=== PATIENT | female | born 1995 | race Caucasian/White ===

== ENCOUNTER 2018-04-21 07:24 | Inpatient (IN) ==
[2018-04-21] MEDS ORDERED: HYDROmorphone 2 MG/1 ML VIAL ONE ×3 (07:30→14:02)
[2018-04-21] MEDS ORDERED: ONDANSETRON 4 MG/2 ML VIAL ONE ×3 (07:30→13:50)
[2018-04-21] MEDS ORDERED: DIPH/TET/ACEL PERT BOOSTER VACCINE 0.5 ML VIAL IM ONE (07:37)
[2018-04-21] MEDS ORDERED: ceFAZolin 1,000 MG VIAL ONE (07:37)
[2018-04-21] MEDS ORDERED: ONDANSETRON 4 MG/2 ML VIAL IV STA (07:42)
[2018-04-21] MEDS ORDERED: HYDROmorphone 2 MG/1 ML VIAL IV STA (07:42)
[2018-04-21] MEDS ORDERED: ceFAZolin 2,000 MG in SODIUM CHLORIDE 0.9% 100 ML IV STA (07:42)
[2018-04-21 07:48] LABS: Basophils % 0.2 % (0.0-0.8); Eosinophils # 0.3 10*3/uL (0.0-0.87); Eosinophils % 1.3 % (0.00-10.9); Hematocrit 32.2 VOL% (35.7-47.0); Hemoglobin 10.6 GM/DL (12.0-16.0); Immature Granulocytes Absolute 0.21 #; Lymphocytes # 1.9 10*3/uL (1.4-4.0); Lymphocytes % 8.7 % (21.3-54.2); Mean Corpuscular HGB Conc 32.9 GM/DL (32-36); Mean Corpuscular Hemoglobin 30 PG (27-34); Mean Corpuscular Volume 90.4 FL (87-102); Mean Platelet Volume 10.4 FL (9.6-12.0); Monocytes # 0.8 10*3/uL (0.11-0.8); Monocytes % 3.6 % (1.7-12.7); Neutrophils # 18.7 10*3/uL (1.4-7.4); Neutrophils % 85.2 % (38.7-73.9); Platelet Count 298 T/CUMM (130-400); Red Blood Count 3.56 MC/CUMM (3.8-5.5); Red Cell Distribution Width 12.3 % (9.3-17.3); White Blood Count 21.9 T/CUMM (4-12)
[2018-04-21 07:54] LABS: PT Patient Result 10.9 SECS; Partial Thromboplastin Time 24.2 SECS (0-40)
[2018-04-21 08:07] LABS: Band Neutrophils 2 % (0-10); Eosinophils 5 % (0-10); Hypochromasia 1+; Lymphocytes 9 % (20-55); Platelet Estimate Adequate; Segmented Neutrophils 80 % (50-85); Total Cells Counted 100
[2018-04-21 08:08] LABS: Microcytosis Slight
[2018-04-21 08:10] LABS: Alanine Aminotransferase 15 U/L (13-56); Albumin 3.2 G/DL (3.4-5.0); Alkaline Phosphatase 57 U/L (45-117); Amylase 50 U/L (25-115); Aspartate Amino Transferase 20 U/L (0-37); Bilirubin,Total < 0.39 MG/DL (0.2-1.0); Blood Urea Nitrogen 8 MG/DL (7-18); Calcium 7.2 MG/DL (8.5-10.1); Glucose 139 MG/DL (74-106); Osmolality,Calculated 278.4 MOS/KG (273-304); Potassium 3.8 MMOL/L (3.5-5.1); Sodium 140 MMOL/L (136-145); Total Protein 6.1 G/DL (6.4-8.3)
[2018-04-21] MEDS ORDERED: GENTAMICIN INJ 150 MG in SODIUM CHLORIDE 0.9% 100 ML IV STA (08:14)
[2018-04-21] MEDS ORDERED: HYDROmorphone 2 MG/1 ML VIAL IV ONE ×2 (08:25→09:20)
[2018-04-21 09:08] LABS: Apearance,Urine CLEAR (Clear); Bilirubin,Urine Negative (Negative); Blood, Urine Negative (Negative); Glucose,Urine (UA) Negative (Negative); Ketones,Urine Negative (Negative); Mucus,Urine Occasional /LPF (Occasional); Nitrite,Urine Negative (Negative); Protein,Urine Negative; RBC,Urine 1 /HPF (0-4); Squamous Epithelial Cell,Urine Occasional /HPF (0-10); Urine Color Yellow (Yellow); Urine Specific Gravity 1.031 (1.001-1.035); Urine Urobilinogen < 2.0 EU/DL (0.2-1.0); WBC,Urine <1 /HPF (0-6)
[2018-04-21] MEDS: LACTATED RINGERS 1,000 ML IV SCH ×3 (09:21→22:51)
[2018-04-21] MEDS ORDERED: TOBRAMYCIN 1.2 GM VIAL TOP ONE (09:23)
[2018-04-21 09:25] LABS: Barbiturates Screen,Urine Negative (Negative); Benzodiazepines Screen,Urine Negative (Negative); Cannabinoid Screen,Urine Positive (Negative); Opiate Screen,Urine Positive (Negative); Phencyclidine Screen,Urine Negative (Negative)
[2018-04-21] MEDS ORDERED: GENTAMICIN 80 MG/2 ML VIAL ONE (09:35)
[2018-04-21] MEDS ORDERED: PROPOFOL 200 MG/20 ML VIAL IV ONE (13:15)
[2018-04-21] MEDS ORDERED: fentaNYL 100 MCG/2 ML VIAL ONE ×2 (13:16)
[2018-04-21] MEDS ORDERED: MIDAZOLAM 2 MG/2 ML VIAL ONE (13:16)
[2018-04-21] MEDS ORDERED: DEXAMETHASONE 10 MG/1 ML VIAL ONE (13:16)
[2018-04-21] MEDS ORDERED: ACETAMINOPHEN 1,000 MG/100 ML VIAL IV ONE (13:16)
[2018-04-21] MEDS ORDERED: SEVOFLURANE 1 UNIT/15 MINUTE INH ONE (13:17)
[2018-04-21 13:30] LABS: Basophils % 0.1 % (0.0-0.8); Hematocrit 34.8 VOL% (35.7-47.0); Immature Granulocytes % 0.5 %; Immature Granulocytes Absolute 0.11 #; Lymphocytes # 1.3 10*3/uL (1.4-4.0); Lymphocytes % 5.9 % (21.3-54.2); Mean Corpuscular HGB Conc 31.6 GM/DL (32-36); Mean Corpuscular Hemoglobin 29 PG (27-34); Mean Corpuscular Volume 92.1 FL (87-102); Mean Platelet Volume 10.5 FL (9.6-12.0); Monocytes # 0.7 10*3/uL (0.11-0.8); Monocytes % 3.2 % (1.7-12.7); Neutrophils # 18.9 10*3/uL (1.4-7.4); Neutrophils % 90.3 % (38.7-73.9); Platelet Count 455 T/CUMM (130-400); Red Blood Count 3.78 MC/CUMM (3.8-5.5); Red Cell Distribution Width 12.5 % (9.3-17.3)
[2018-04-21] MEDS ORDERED: ROPIVACAINE 0.5% 30 ML VIAL ONE (13:39)
[2018-04-21] MEDS ORDERED: ONDANSETRON 4 MG/2 ML VIAL IV PRN (13:59)
[2018-04-21] MEDS: HYDROmorphone 2 MG/1 ML VIAL IV PRN ×4 (14:05→14:41)
[2018-04-21 15:21] LABS: Band Neutrophils 2 % (0-10); Lymphocytes 10 % (20-55); Platelet Estimate Increased; Polychromasia Slight; Segmented Neutrophils 88 % (50-85); Total Cells Counted 100
[2018-04-21 15:31] LABS: Basophils % 0.2 % (0.0-0.8); Hemoglobin 11.8 GM/DL (12.0-16.0); Immature Granulocytes % 0.7 %; Immature Granulocytes Absolute 0.15 #; Lymphocytes # 1.5 10*3/uL (1.4-4.0); Lymphocytes % 6.8 % (21.3-54.2); Mean Corpuscular HGB Conc 31.9 GM/DL (32-36); Mean Corpuscular Hemoglobin 30 PG (27-34); Mean Corpuscular Volume 92.5 FL (87-102); Mean Platelet Volume 10.4 FL (9.6-12.0); Monocytes # 0.9 10*3/uL (0.11-0.8); Neutrophils # 19.9 10*3/uL (1.4-7.4); Neutrophils % 88.3 % (38.7-73.9); Platelet Count 506 T/CUMM (130-400); Red Cell Distribution Width 12.6 % (9.3-17.3); White Blood Count 22.5 T/CUMM (4-12)
[2018-04-21 15:58] LABS: Calcium 7.3 MG/DL (8.5-10.1); Osmolality,Calculated 276.8 MOS/KG (273-304); Potassium 4.6 MMOL/L (3.5-5.1)
[2018-04-21 16:02] LABS: Band Neutrophils 2 % (0-10); Lymphocytes 6 % (20-55); Macrocytosis Slight; Platelet Estimate Increased; Segmented Neutrophils 89 % (50-85); Total Cells Counted 100
[2018-04-21] MEDS: ceFAZolin 2,000 MG in PREMIX 1 EACH IV SCH ×2 (16:30→23:47)
[2018-04-21] MEDS: MORPHINE 4 MG/1 ML VIAL IV PRN ×3 (16:32→23:44)
[2018-04-21] MEDS: ONDANSETRON 4 MG/2 ML VIAL IV PRN (16:37)
[2018-04-21] MEDS: GENTAMICIN INJ 320 MG in SODIUM CHLORIDE 0.9% 100 ML IV SCH (21:31)
[2018-04-22] MEDS: MORPHINE 4 MG/1 ML VIAL IV PRN ×5 (04:28→18:18)
[2018-04-22] MEDS: LACTATED RINGERS 1,000 ML IV SCH ×2 (05:43→16:43)
[2018-04-22 06:01] LABS: Basophils % 0.2 % (0.0-0.8); Hematocrit 25.2 VOL% (35.7-47.0); Hemoglobin 8.2 GM/DL (12.0-16.0); Immature Granulocytes % 0.5 %; Immature Granulocytes Absolute 0.06 #; Lymphocytes # 1.9 10*3/uL (1.4-4.0); Lymphocytes % 14.3 % (21.3-54.2); Mean Corpuscular HGB Conc 32.5 GM/DL (32-36); Mean Corpuscular Hemoglobin 29 PG (27-34); Mean Platelet Volume 10.5 FL (9.6-12.0); Monocytes # 1.4 10*3/uL (0.11-0.8); Monocytes % 10.9 % (1.7-12.7); Neutrophils # 9.6 10*3/uL (1.4-7.4); Neutrophils % 74.1 % (38.7-73.9); Platelet Count 274 T/CUMM (130-400); Red Blood Count 2.83 MC/CUMM (3.8-5.5); Red Cell Distribution Width 12.7 % (9.3-17.3); White Blood Count 12.9 T/CUMM (4-12)
[2018-04-22 06:17] LABS: Calcium 7.4 MG/DL (8.5-10.1); Potassium 4.2 MMOL/L (3.5-5.1)
[2018-04-22 06:35] LABS: Hypochromasia 1+; Microcytosis 1+
[2018-04-22 06:36] LABS: Platelet Estimate Normal
[2018-04-22] MEDS: PANTOPRAZOLE 40 MG TABLET PO SCH (08:41)
[2018-04-22] MEDS: ceFAZolin 2,000 MG in PREMIX 1 EACH IV SCH (08:41)
[2018-04-22] MEDS: CITALOPRAM 20 MG TABLET PO SCH (08:41)
[2018-04-22] MEDS: ONDANSETRON 4 MG/2 ML VIAL IV PRN ×2 (09:25→18:17)
[2018-04-22] MEDS ORDERED: ALPRAZolam 0.5 MG TABLET PO PRN (09:38)
[2018-04-22] MEDS: buPROPion 75 MG TABLET PO SCH (11:40)
[2018-04-22] MEDS: ACETAMINOPHEN 325 MG TABLET PO PRN (18:16)
[2018-04-22] MEDS: GENTAMICIN INJ 320 MG in SODIUM CHLORIDE 0.9% 100 ML IV SCH (20:41)
[2018-04-23] MEDS: LACTATED RINGERS 1,000 ML IV SCH (06:15)
[2018-04-23] MEDS ORDERED: ROPIVACAINE 0.5% 30 ML VIAL ONE (06:38)
[2018-04-23 07:07] LABS: Basophils % 0.3 % (0.0-0.8); Eosinophils # 0.1 10*3/uL (0.0-0.87); Eosinophils % 1.1 % (0.00-10.9); Hematocrit 20.3 VOL% (35.7-47.0); Hemoglobin 6.7 GM/DL (12.0-16.0); Immature Granulocytes % 0.5 %; Immature Granulocytes Absolute 0.05 #; Lymphocytes # 1.1 10*3/uL (1.4-4.0); Lymphocytes % 11.8 % (21.3-54.2); Mean Corpuscular Hemoglobin 30 PG (27-34); Mean Corpuscular Volume 90.2 FL (87-102); Mean Platelet Volume 10.9 FL (9.6-12.0); Monocytes # 0.9 10*3/uL (0.11-0.8); Monocytes % 9.9 % (1.7-12.7); Neutrophils # 7.3 10*3/uL (1.4-7.4); Neutrophils % 76.4 % (38.7-73.9); Platelet Count 200 T/CUMM (130-400); Red Blood Count 2.25 MC/CUMM (3.8-5.5); Red Cell Distribution Width 12.6 % (9.3-17.3); White Blood Count 9.5 T/CUMM (4-12)
[2018-04-23] MEDS ORDERED: SODIUM CHLORIDE 0.9% 1,000 ML IV PRN (07:16)
[2018-04-23 07:35] LABS: Band Neutrophils 3 % (0-10); Eosinophils 1 % (0-10); Hypochromasia 1+; Lymphocytes 10 % (20-55); Microcytosis Slight; Platelet Estimate Adequate; Segmented Neutrophils 76 % (50-85); Total Cells Counted 100
[2018-04-23 07:41] LABS: Osmolality,Calculated 271.8 MOS/KG (273-304); Potassium 3.9 MMOL/L (3.5-5.1)
[2018-04-23] MEDS ORDERED: SEVOFLURANE 1 UNIT/15 MINUTE INH ONE (09:14)
[2018-04-23] MEDS ORDERED: PROPOFOL 200 MG/20 ML VIAL IV ONE (09:14)
[2018-04-23] MEDS ORDERED: SODIUM CHLORIDE 0.9% 1,000 ML IV ONE (09:15)
[2018-04-23] MEDS ORDERED: MIDAZOLAM 2 MG/2 ML VIAL ONE (09:15)
[2018-04-23] MEDS ORDERED: fentaNYL 100 MCG/2 ML VIAL ONE (09:15)
[2018-04-23] MEDS ORDERED: ONDANSETRON 4 MG/2 ML VIAL ONE ×2 (09:15→09:22)
[2018-04-23] MEDS ORDERED: ONDANSETRON 4 MG/2 ML VIAL IV PRN (09:26)
[2018-04-23] MEDS ORDERED: HYDROmorphone 2 MG/1 ML VIAL IV PRN (09:39)
[2018-04-23] MEDS: ceFAZolin 2,000 MG in PREMIX 1 EACH IV SCH ×2 (10:49→18:08)
[2018-04-23] MEDS: CITALOPRAM 20 MG TABLET PO SCH (12:00)
[2018-04-23] MEDS: PANTOPRAZOLE 40 MG TABLET PO SCH (12:01)
[2018-04-23] MEDS: buPROPion 75 MG TABLET PO SCH (12:01)
[2018-04-23] MEDS: MORPHINE 4 MG/1 ML VIAL IV PRN ×3 (13:30→23:44)
[2018-04-23] MEDS: GENTAMICIN INJ 320 MG in SODIUM CHLORIDE 0.9% 100 ML IV SCH (20:23)
[2018-04-24] MEDS: ceFAZolin 2,000 MG in PREMIX 1 EACH IV SCH ×3 (02:40→19:34)
[2018-04-24] MEDS: LACTATED RINGERS 1,000 ML IV SCH (04:53)
[2018-04-24] MEDS: MORPHINE 4 MG/1 ML VIAL IV PRN (06:16)
[2018-04-24 06:23] LABS: Basophils % 0.3 % (0.0-0.8); Eosinophils # 0.2 10*3/uL (0.0-0.87); Eosinophils % 1.4 % (0.00-10.9); Hematocrit 24.6 VOL% (35.7-47.0); Immature Granulocytes % 0.5 %; Immature Granulocytes Absolute 0.06 #; Lymphocytes # 1.2 10*3/uL (1.4-4.0); Lymphocytes % 10.7 % (21.3-54.2); Mean Corpuscular HGB Conc 32.5 GM/DL (32-36); Mean Corpuscular Hemoglobin 29 PG (27-34); Mean Corpuscular Volume 89.5 FL (87-102); Mean Platelet Volume 10.9 FL (9.6-12.0); Monocytes # 0.8 10*3/uL (0.11-0.8); Monocytes % 6.9 % (1.7-12.7); Neutrophils # 9.1 10*3/uL (1.4-7.4); Neutrophils % 80.2 % (38.7-73.9); Platelet Count 185 T/CUMM (130-400); Red Blood Count 2.75 MC/CUMM (3.8-5.5); Red Cell Distribution Width 13.5 % (9.3-17.3); White Blood Count 11.4 T/CUMM (4-12)
[2018-04-24 06:31] LABS: Calcium 8.3 MG/DL (8.5-10.1); Osmolality,Calculated 266.1 MOS/KG (273-304); Potassium 3.8 MMOL/L (3.5-5.1)
[2018-04-24] MEDS: buPROPion 75 MG TABLET PO SCH (08:48)
[2018-04-24] MEDS: PANTOPRAZOLE 40 MG TABLET PO SCH (08:48)
[2018-04-24] MEDS: CITALOPRAM 20 MG TABLET PO SCH (08:48)
[2018-04-24] MEDS: diphenhydrAMINE CAP 25 MG CAPSULE PO PRN (10:53)
[2018-04-24] MEDS: HYDROmorphone 2 MG/1 ML VIAL IV PRN ×3 (11:37→22:37)
[2018-04-24] MEDS ORDERED: DIAZEPAM 5 MG TABLET PO ONE (16:24)
[2018-04-24] MEDS: GENTAMICIN INJ 320 MG in SODIUM CHLORIDE 0.9% 100 ML IV SCH (20:29)
[2018-04-25] MEDS: LACTATED RINGERS 1,000 ML IV SCH ×2 (00:13→10:30)
[2018-04-25] MEDS: diphenhydrAMINE CAP 25 MG CAPSULE PO PRN (00:13)
[2018-04-25] MEDS: HYDROmorphone 2 MG/1 ML VIAL IV PRN ×9 (03:58→21:38)
[2018-04-25] MEDS: ceFAZolin 2,000 MG in PREMIX 1 EACH IV SCH ×3 (04:00→21:35)
[2018-04-25] MEDS ORDERED: DIAZEPAM 5 MG TABLET PO ONE (06:00)
[2018-04-25] MEDS ORDERED: ROPIVACAINE 0.5% 30 ML VIAL ONE (06:36)
[2018-04-25] MEDS ORDERED: EPINEPHrine 1 MG/ML VIAL ONE (06:51)
[2018-04-25] MEDS ORDERED: BUPIVACAINE 0.25% /EPI 10 ML VIAL ONE (06:56)
[2018-04-25] MEDS ORDERED: BUPIVACAINE 0.5% 50 ML VIAL ONE ×2 (06:59→07:02)
[2018-04-25] MEDS ORDERED: BACITRACIN OINT 0.9 GM PACK TOP ONE (07:55)
[2018-04-25] MEDS ORDERED: ONDANSETRON 4 MG/2 ML VIAL IV PRN (09:41)
[2018-04-25] MEDS ORDERED: MEPERIDINE 25 MG/1 ML VIAL IV PRN (09:41)
[2018-04-25] MEDS ORDERED: NALOXONE 0.4 MG/ML VIAL IV PRN (09:41)
[2018-04-25] MEDS ORDERED: fentaNYL 100 MCG/2 ML VIAL ONE (09:44)
[2018-04-25] MEDS ORDERED: MIDAZOLAM 2 MG/2 ML VIAL ONE (09:44)
[2018-04-25] MEDS ORDERED: ONDANSETRON 4 MG/2 ML VIAL ONE ×2 (09:44→09:50)
[2018-04-25] MEDS ORDERED: PROPOFOL 200 MG/20 ML VIAL IV ONE (09:44)
[2018-04-25] MEDS ORDERED: SEVOFLURANE 1 UNIT/15 MINUTE INH ONE (09:44)
[2018-04-25] MEDS ORDERED: PHENYLEPHRINE 1 MG/10 ML SYRINGE IV ONE (09:44)
[2018-04-25] MEDS ORDERED: MEPERIDINE 25 MG/1 ML VIAL ONE (09:49)
[2018-04-25] MEDS ORDERED: HYDROmorphone 2 MG/1 ML VIAL ONE (09:49)
[2018-04-25] MEDS ORDERED: PROMETHAZINE 25 MG/1 ML VIAL ONE (09:50)
[2018-04-25 10:15] LABS: Basophils % 0.2 % (0.0-0.8); Eosinophils # 0.1 10*3/uL (0.0-0.87); Eosinophils % 1.7 % (0.00-10.9); Hematocrit 22.4 VOL% (35.7-47.0); Hemoglobin 7.3 GM/DL (12.0-16.0); Immature Granulocytes % 0.6 %; Immature Granulocytes Absolute 0.05 #; Lymphocytes # 1.5 10*3/uL (1.4-4.0); Lymphocytes % 18.5 % (21.3-54.2); Mean Corpuscular HGB Conc 32.6 GM/DL (32-36); Mean Corpuscular Hemoglobin 29 PG (27-34); Mean Corpuscular Volume 90.3 FL (87-102); Mean Platelet Volume 9.7 FL (9.6-12.0); Monocytes # 0.6 10*3/uL (0.11-0.8); Monocytes % 7.6 % (1.7-12.7); Neutrophils # 5.8 10*3/uL (1.4-7.4); Neutrophils % 71.4 % (38.7-73.9); Platelet Count 225 T/CUMM (130-400); Red Blood Count 2.48 MC/CUMM (3.8-5.5); Red Cell Distribution Width 13.2 % (9.3-17.3); White Blood Count 8.1 T/CUMM (4-12)
[2018-04-25 10:37] LABS: Osmolality,Calculated 274.5 MOS/KG (273-304); Potassium 3.6 MMOL/L (3.5-5.1)
[2018-04-25] MEDS: PANTOPRAZOLE 40 MG TABLET PO SCH (11:28)
[2018-04-25] MEDS: buPROPion 75 MG TABLET PO SCH ×2 (11:28→21:22)
[2018-04-25] MEDS: CITALOPRAM 20 MG TABLET PO SCH (11:28)
[2018-04-25] MEDS ORDERED: SODIUM CHLORIDE 0.9% 1,000 ML IV PRN (11:30)
[2018-04-25] MEDS: FONDAPARINUX 2.5 MG/0.5 ML SYRINGE SUBCUT SCH (15:14)
[2018-04-25] MEDS: GENTAMICIN INJ 320 MG in SODIUM CHLORIDE 0.9% 100 ML IV SCH (22:36)
[2018-04-26] MEDS: HYDROmorphone 2 MG/1 ML VIAL IV PRN ×6 (03:26→23:16)
[2018-04-26 05:09] LABS: Basophils % 0.2 % (0.0-0.8); Eosinophils # 0.3 10*3/uL (0.0-0.87); Eosinophils % 2.9 % (0.00-10.9); Hematocrit 27.2 VOL% (35.7-47.0); Lymphocytes # 1.7 10*3/uL (1.4-4.0); Lymphocytes % 16.3 % (21.3-54.2); Mean Corpuscular HGB Conc 33.1 GM/DL (32-36); Mean Corpuscular Hemoglobin 29 PG (27-34); Mean Corpuscular Volume 87.5 FL (87-102); Mean Platelet Volume 9.9 FL (9.6-12.0); Monocytes # 1.1 10*3/uL (0.11-0.8); Monocytes % 10.4 % (1.7-12.7); Neutrophils % 69.2 % (38.7-73.9); Platelet Count 258 T/CUMM (130-400); Red Blood Count 3.11 MC/CUMM (3.8-5.5); Red Cell Distribution Width 13.8 % (9.3-17.3); White Blood Count 10.1 T/CUMM (4-12)
[2018-04-26] MEDS: ceFAZolin 2,000 MG in PREMIX 1 EACH IV SCH ×3 (05:43→21:12)
[2018-04-26] MEDS: buPROPion 75 MG TABLET PO SCH ×2 (08:06→21:10)
[2018-04-26] MEDS: MULTIVITAMIN (PRENATAL) TABLET PO SCH (08:06)
[2018-04-26] MEDS: CITALOPRAM 20 MG TABLET PO SCH (08:06)
[2018-04-26] MEDS: PANTOPRAZOLE 40 MG TABLET PO SCH (08:06)
[2018-04-26] MEDS: FONDAPARINUX 2.5 MG/0.5 ML SYRINGE SUBCUT SCH (14:47)
[2018-04-26] MEDS: MAGNESIUM HYDROXIDE SUSP 30 ML UDCUP PO PRN (16:57)
[2018-04-26] MEDS: GENTAMICIN INJ 320 MG in SODIUM CHLORIDE 0.9% 100 ML IV SCH (22:00)
[2018-04-27] MEDS: HYDROmorphone 2 MG/1 ML VIAL IV PRN ×7 (01:14→19:54)
[2018-04-27] MEDS: ONDANSETRON 4 MG/2 ML VIAL IV PRN ×2 (04:09→22:31)
[2018-04-27] MEDS: ceFAZolin 2,000 MG in PREMIX 1 EACH IV SCH ×3 (05:23→21:48)
[2018-04-27] MEDS: CITALOPRAM 20 MG TABLET PO SCH (08:31)
[2018-04-27] MEDS: PANTOPRAZOLE 40 MG TABLET PO SCH (08:32)
[2018-04-27] MEDS: MULTIVITAMIN (PRENATAL) TABLET PO SCH (08:32)
[2018-04-27] MEDS: buPROPion 75 MG TABLET PO SCH ×2 (08:32→21:51)
[2018-04-27] MEDS: MAGNESIUM HYDROXIDE SUSP 30 ML UDCUP PO PRN ×2 (13:16→21:51)
[2018-04-27] MEDS: FONDAPARINUX 2.5 MG/0.5 ML SYRINGE SUBCUT SCH (16:19)
[2018-04-27] MEDS: GENTAMICIN INJ 320 MG in SODIUM CHLORIDE 0.9% 100 ML IV SCH (21:53)
[2018-04-28] MEDS: LACTATED RINGERS 1,000 ML IV SCH ×2 (00:55→18:46)
[2018-04-28] MEDS: HYDROmorphone 2 MG/1 ML VIAL IV PRN ×9 (01:28→20:48)
[2018-04-28] MEDS: ceFAZolin 2,000 MG in PREMIX 1 EACH IV SCH ×2 (04:43→17:25)
[2018-04-28] MEDS ORDERED: CLINDAMYCIN INJ 600 MG in PREMIX 1 EACH IV ONE (05:00)
[2018-04-28 09:17] LABS: Basophils % 0.2 % (0.0-0.8); Eosinophils # 0.1 10*3/uL (0.0-0.87); Eosinophils % 1.3 % (0.00-10.9); Hematocrit 32.4 VOL% (35.7-47.0); Hemoglobin 10.6 GM/DL (12.0-16.0); Immature Granulocytes % 1.2 %; Immature Granulocytes Absolute 0.12 #; Lymphocytes % 9.6 % (21.3-54.2); Mean Corpuscular HGB Conc 32.7 GM/DL (32-36); Mean Corpuscular Hemoglobin 29 PG (27-34); Mean Corpuscular Volume 88.5 FL (87-102); Mean Platelet Volume 9.3 FL (9.6-12.0); Monocytes % 9.1 % (1.7-12.7); Neutrophils # 8.2 10*3/uL (1.4-7.4); Neutrophils % 78.6 % (38.7-73.9); Platelet Count 404 T/CUMM (130-400); Red Blood Count 3.66 MC/CUMM (3.8-5.5); Red Cell Distribution Width 13.2 % (9.3-17.3); White Blood Count 10.4 T/CUMM (4-12)
[2018-04-28] MEDS ORDERED: BACITRACIN OINT 0.9 GM PACK TOP ONE (11:39)
[2018-04-28] MEDS ORDERED: TOBRAMYCIN 1.2 GM VIAL TOP ONE (12:58)
[2018-04-28] MEDS ORDERED: GENTAMICIN 80 MG/2 ML VIAL ONE (12:59)
[2018-04-28] MEDS ORDERED: VANCOMYCIN 1,000 MG VIAL ONE (13:04)
[2018-04-28] MEDS ORDERED: ACETAMINOPHEN 1,000 MG/100 ML VIAL IV ONE (14:55)
[2018-04-28] MEDS ORDERED: PROPOFOL 200 MG/20 ML VIAL IV ONE (14:55)
[2018-04-28] MEDS ORDERED: SEVOFLURANE 1 UNIT/15 MINUTE INH ONE (14:55)
[2018-04-28] MEDS ORDERED: fentaNYL 100 MCG/2 ML VIAL ONE (14:55)
[2018-04-28] MEDS ORDERED: DEXAMETHASONE 10 MG/1 ML VIAL ONE (14:55)
[2018-04-28] MEDS ORDERED: ONDANSETRON 4 MG/2 ML VIAL ONE ×2 (14:55→15:15)
[2018-04-28] MEDS ORDERED: LACTATED RINGERS 1,000 ML IV ONE (14:55)
[2018-04-28] MEDS ORDERED: MIDAZOLAM 2 MG/2 ML VIAL ONE (14:55)
[2018-04-28] MEDS ORDERED: HYDROmorphone 2 MG/1 ML VIAL ONE (15:15)
[2018-04-28] MEDS ORDERED: ONDANSETRON 4 MG/2 ML VIAL IV PRN (15:17)
[2018-04-28] MEDS: PANTOPRAZOLE 40 MG TABLET PO SCH (17:11)
[2018-04-28] MEDS: MULTIVITAMIN (PRENATAL) TABLET PO SCH (17:11)
[2018-04-28] MEDS: CITALOPRAM 20 MG TABLET PO SCH (17:11)
[2018-04-28] MEDS: buPROPion 75 MG TABLET PO SCH ×2 (17:20→20:48)
[2018-04-28] MEDS: FONDAPARINUX 2.5 MG/0.5 ML SYRINGE SUBCUT SCH (18:21)
[2018-04-28] MEDS: GENTAMICIN INJ 320 MG in SODIUM CHLORIDE 0.9% 100 ML IV SCH (22:43)
[2018-04-29] MEDS: HYDROmorphone 2 MG/1 ML VIAL IV PRN ×5 (00:12→19:50)
[2018-04-29] MEDS: ceFAZolin 2,000 MG in PREMIX 1 EACH IV SCH ×3 (00:15→17:31)
[2018-04-29 05:22] LABS: Calcium 8.7 MG/DL (8.5-10.1); Osmolality,Calculated 271.2 MOS/KG (273-304); Potassium 4.6 MMOL/L (3.5-5.1)
[2018-04-29] MEDS: LACTATED RINGERS 1,000 ML IV SCH ×2 (06:49→07:49)
[2018-04-29] MEDS ORDERED: BISACODYL 10 MG SUPP RECTAL ONE (07:48)
[2018-04-29] MEDS: CITALOPRAM 20 MG TABLET PO SCH (09:03)
[2018-04-29] MEDS: MULTIVITAMIN (PRENATAL) TABLET PO SCH (09:03)
[2018-04-29] MEDS: PANTOPRAZOLE 40 MG TABLET PO SCH (09:03)
[2018-04-29] MEDS: buPROPion 75 MG TABLET PO SCH ×2 (10:27→21:51)
[2018-04-29] MEDS: FONDAPARINUX 2.5 MG/0.5 ML SYRINGE SUBCUT SCH (14:50)
[2018-04-29] MEDS: GENTAMICIN INJ 320 MG in SODIUM CHLORIDE 0.9% 100 ML IV SCH (21:45)
[2018-04-30] MEDS: LACTATED RINGERS 1,000 ML IV SCH ×4 (00:34→22:00)
[2018-04-30] MEDS: HYDROmorphone 2 MG/1 ML VIAL IV PRN ×3 (00:34→13:10)
[2018-04-30] MEDS: ceFAZolin 2,000 MG in PREMIX 1 EACH IV SCH ×3 (00:34→16:45)
[2018-04-30] MEDS: buPROPion 75 MG TABLET PO SCH ×2 (09:08→21:44)
[2018-04-30] MEDS: PANTOPRAZOLE 40 MG TABLET PO SCH (09:09)
[2018-04-30] MEDS: MULTIVITAMIN (PRENATAL) TABLET PO SCH (09:09)
[2018-04-30] MEDS: CITALOPRAM 20 MG TABLET PO SCH (09:09)
[2018-04-30] MEDS: FONDAPARINUX 2.5 MG/0.5 ML SYRINGE SUBCUT SCH (16:44)
[2018-04-30] MEDS: GENTAMICIN INJ 320 MG in SODIUM CHLORIDE 0.9% 100 ML IV SCH (21:44)
[2018-05-01] MEDS: ceFAZolin 2,000 MG in PREMIX 1 EACH IV SCH ×3 (00:23→16:29)
[2018-05-01] MEDS: LACTATED RINGERS 1,000 ML IV SCH ×2 (07:10→22:22)
[2018-05-01] MEDS: buPROPion 75 MG TABLET PO SCH ×2 (08:08→20:37)
[2018-05-01] MEDS: CITALOPRAM 20 MG TABLET PO SCH (08:08)
[2018-05-01] MEDS: PANTOPRAZOLE 40 MG TABLET PO SCH (08:08)
[2018-05-01] MEDS: MULTIVITAMIN (PRENATAL) TABLET PO SCH (08:08)
[2018-05-01] MEDS: HYDROmorphone 2 MG/1 ML VIAL IV PRN ×3 (12:10→17:33)
[2018-05-01] MEDS: FONDAPARINUX 2.5 MG/0.5 ML SYRINGE SUBCUT SCH (15:05)
[2018-05-01] MEDS: GENTAMICIN INJ 320 MG in SODIUM CHLORIDE 0.9% 100 ML IV SCH (22:22)
[2018-05-02] MEDS: ceFAZolin 2,000 MG in PREMIX 1 EACH IV SCH ×3 (00:35→16:18)
[2018-05-02 05:13] LABS: Basophils % 0.2 % (0.0-0.8); Eosinophils # 0.2 10*3/uL (0.0-0.87); Eosinophils % 1.2 % (0.00-10.9); Hematocrit 28.9 VOL% (35.7-47.0); Hemoglobin 9.1 GM/DL (12.0-16.0); Immature Granulocytes % 1.7 %; Immature Granulocytes Absolute 0.23 #; Lymphocytes # 2.5 10*3/uL (1.4-4.0); Mean Corpuscular HGB Conc 31.5 GM/DL (32-36); Mean Corpuscular Hemoglobin 28 PG (27-34); Mean Corpuscular Volume 88.4 FL (87-102); Mean Platelet Volume 8.8 FL (9.6-12.0); Monocytes # 0.7 10*3/uL (0.11-0.8); Monocytes % 5.1 % (1.7-12.7); Neutrophils # 10.2 10*3/uL (1.4-7.4); Neutrophils % 73.8 % (38.7-73.9); Platelet Count 538 T/CUMM (130-400); Red Blood Count 3.27 MC/CUMM (3.8-5.5); White Blood Count 13.8 T/CUMM (4-12)
[2018-05-02 05:20] LABS: Calcium 8.9 MG/DL (8.5-10.1); Osmolality,Calculated 273.8 MOS/KG (273-304); Potassium 4.1 MMOL/L (3.5-5.1)
[2018-05-02] MEDS ORDERED: BUPIVACAINE 0.5% 50 ML VIAL ONE (07:30)
[2018-05-02] MEDS ORDERED: EPINEPHrine 1 MG/ML VIAL ONE (07:31)
[2018-05-02] MEDS ORDERED: FAMOTIDINE 20 MG/2 ML VIAL IV ONE (08:10)
[2018-05-02] MEDS ORDERED: MINERAL OIL (TOPICAL) 25 ML BOTTLE TOP ONE (08:21)
[2018-05-02] MEDS ORDERED: fentaNYL 100 MCG/2 ML VIAL ONE (09:31)
[2018-05-02] MEDS ORDERED: MIDAZOLAM 2 MG/2 ML VIAL ONE (09:31)
[2018-05-02] MEDS ORDERED: SEVOFLURANE 1 UNIT/15 MINUTE INH ONE (09:31)
[2018-05-02] MEDS ORDERED: PROPOFOL 200 MG/20 ML VIAL IV ONE (09:31)
[2018-05-02] MEDS ORDERED: ONDANSETRON 4 MG/2 ML VIAL ONE (09:32)
[2018-05-02] MEDS ORDERED: PHENYLEPHRINE 1 MG/10 ML SYRINGE IV ONE (09:32)
[2018-05-02] MEDS: HYDROmorphone 2 MG/1 ML VIAL IV PRN ×5 (10:29→21:57)
[2018-05-02] MEDS: buPROPion 75 MG TABLET PO SCH ×2 (12:38→21:04)
[2018-05-02] MEDS: MULTIVITAMIN (PRENATAL) TABLET PO SCH (12:38)
[2018-05-02] MEDS: PANTOPRAZOLE 40 MG TABLET PO SCH (12:38)
[2018-05-02] MEDS: CITALOPRAM 20 MG TABLET PO SCH (12:38)
[2018-05-02] MEDS: FONDAPARINUX 2.5 MG/0.5 ML SYRINGE SUBCUT SCH (15:36)
[2018-05-02] MEDS: GENTAMICIN INJ 320 MG in SODIUM CHLORIDE 0.9% 100 ML IV SCH (21:05)
[2018-05-02] MEDS: LACTATED RINGERS 1,000 ML IV SCH (21:56)
[2018-05-03] MEDS: HYDROmorphone 2 MG/1 ML VIAL IV PRN ×12 (00:03→22:11)
[2018-05-03] MEDS: ceFAZolin 2,000 MG in PREMIX 1 EACH IV SCH ×3 (01:57→16:01)
[2018-05-03] MEDS: buPROPion 75 MG TABLET PO SCH ×2 (09:38→20:01)
[2018-05-03] MEDS: CITALOPRAM 20 MG TABLET PO SCH (09:38)
[2018-05-03] MEDS: MULTIVITAMIN (PRENATAL) TABLET PO SCH (09:38)
[2018-05-03] MEDS: PANTOPRAZOLE 40 MG TABLET PO SCH (09:39)
[2018-05-03] MEDS: FONDAPARINUX 2.5 MG/0.5 ML SYRINGE SUBCUT SCH (15:04)
[2018-05-03] MEDS: GENTAMICIN INJ 320 MG in SODIUM CHLORIDE 0.9% 100 ML IV SCH (22:15)
[2018-05-03] MEDS: ACETAMINOPHEN 325 MG TABLET PO PRN (22:21)
[2018-05-04] MEDS: HYDROmorphone 2 MG/1 ML VIAL IV PRN ×13 (00:45→22:47)
[2018-05-04] MEDS: ceFAZolin 2,000 MG in PREMIX 1 EACH IV SCH ×3 (00:54→17:43)
[2018-05-04] MEDS: LACTATED RINGERS 1,000 ML IV SCH ×2 (00:55→12:13)
[2018-05-04] MEDS: buPROPion 75 MG TABLET PO SCH ×2 (09:00→21:10)
[2018-05-04] MEDS ORDERED: SEVOFLURANE 1 UNIT/15 MINUTE INH ONE (09:15)
[2018-05-04] MEDS ORDERED: fentaNYL 100 MCG/2 ML VIAL ONE (09:15)
[2018-05-04] MEDS ORDERED: PROPOFOL 200 MG/20 ML VIAL IV ONE (09:15)
[2018-05-04] MEDS ORDERED: MIDAZOLAM 2 MG/2 ML VIAL ONE (09:15)
[2018-05-04] MEDS ORDERED: ONDANSETRON 4 MG/2 ML VIAL ONE ×2 (09:16→09:25)
[2018-05-04] MEDS ORDERED: PHENYLEPHRINE 1 MG/10 ML SYRINGE IV ONE (09:16)
[2018-05-04] MEDS ORDERED: HYDROmorphone 2 MG/1 ML VIAL ONE (09:25)
[2018-05-04] MEDS ORDERED: MEPERIDINE 25 MG/1 ML VIAL ONE (09:25)
[2018-05-04] MEDS ORDERED: PROMETHAZINE 25 MG/1 ML VIAL ONE (09:25)
[2018-05-04] MEDS ORDERED: ONDANSETRON 4 MG/2 ML VIAL IV PRN (10:29)
[2018-05-04] MEDS ORDERED: MEPERIDINE 25 MG/1 ML VIAL IV PRN (10:29)
[2018-05-04] MEDS ORDERED: PROMETHAZINE INJ 25 MG in SODIUM CHLORIDE 0.9% 50 ML IV PRN (10:29)
[2018-05-04] MEDS: MULTIVITAMIN (PRENATAL) TABLET PO SCH (12:06)
[2018-05-04] MEDS: CITALOPRAM 20 MG TABLET PO SCH (12:06)
[2018-05-04] MEDS: PANTOPRAZOLE 40 MG TABLET PO SCH (12:06)
[2018-05-04] MEDS: MAGNESIUM HYDROXIDE SUSP 30 ML UDCUP PO PRN (12:12)
[2018-05-04] MEDS: FONDAPARINUX 2.5 MG/0.5 ML SYRINGE SUBCUT SCH (14:11)
[2018-05-04] MEDS: GENTAMICIN INJ 320 MG in SODIUM CHLORIDE 0.9% 100 ML IV SCH (21:12)
[2018-05-05] MEDS: HYDROmorphone 2 MG/1 ML VIAL IV PRN ×11 (01:12→22:08)
[2018-05-05] MEDS: ceFAZolin 2,000 MG in PREMIX 1 EACH IV SCH ×3 (01:17→17:05)
[2018-05-05 06:41] LABS: Basophils % 0.2 % (0.0-0.8); Eosinophils # 0.1 10*3/uL (0.0-0.87); Eosinophils % 1.2 % (0.00-10.9); Hematocrit 26.8 VOL% (35.7-47.0); Hemoglobin 8.3 GM/DL (12.0-16.0); Immature Granulocytes % 0.8 %; Immature Granulocytes Absolute 0.09 #; Lymphocytes # 2.1 10*3/uL (1.4-4.0); Lymphocytes % 17.6 % (21.3-54.2); Mean Corpuscular Hemoglobin 28 PG (27-34); Mean Corpuscular Volume 90.2 FL (87-102); Mean Platelet Volume 8.9 FL (9.6-12.0); Monocytes # 0.8 10*3/uL (0.11-0.8); Monocytes % 6.8 % (1.7-12.7); Neutrophils # 8.7 10*3/uL (1.4-7.4); Neutrophils % 73.4 % (38.7-73.9); Platelet Count 498 T/CUMM (130-400); Red Blood Count 2.97 MC/CUMM (3.8-5.5); Red Cell Distribution Width 12.9 % (9.3-17.3); White Blood Count 11.9 T/CUMM (4-12)
[2018-05-05 07:15] LABS: Calcium 8.6 MG/DL (8.5-10.1); Osmolality,Calculated 276.7 MOS/KG (273-304); Potassium 3.8 MMOL/L (3.5-5.1)
[2018-05-05 08:26] LABS: Carboxy-THC Interpretation Positive.; Carboxy-THC-by GC/MS >500.0 ng/mL
[2018-05-05] MEDS: PANTOPRAZOLE 40 MG TABLET PO SCH (08:36)
[2018-05-05] MEDS: MULTIVITAMIN (PRENATAL) TABLET PO SCH (08:36)
[2018-05-05] MEDS: buPROPion 75 MG TABLET PO SCH ×2 (08:36→20:03)
[2018-05-05] MEDS: CITALOPRAM 20 MG TABLET PO SCH (08:36)
[2018-05-05] MEDS: FONDAPARINUX 2.5 MG/0.5 ML SYRINGE SUBCUT SCH (15:29)
[2018-05-05 18:20] LABS: Codeine-by LC-MS/MS Negative ng/mL (Cutoff: 25); Dihydrocodeine-by LC-MS/MS Negative ng/mL (Cutoff: 25); Morphine-by LC-MS/MS Negative ng/mL (Cutoff: 25); Norhydrocodone-by LC-MS/MS Negative ng/mL (Cutoff: 25); Noroxycodone-by LC MS/MS Negative ng/mL (Cutoff: 25); Opiates Interpretation Positive.; Oxycodone-by LC-MS/MS Negative ng/mL (Cutoff: 25)
[2018-05-05] MEDS: GENTAMICIN INJ 320 MG in SODIUM CHLORIDE 0.9% 100 ML IV SCH (21:24)
[2018-05-05] MEDS: MAGNESIUM HYDROXIDE SUSP 30 ML UDCUP PO PRN (22:07)
[2018-05-06] MEDS: ceFAZolin 2,000 MG in PREMIX 1 EACH IV SCH ×3 (00:02→18:50)
[2018-05-06] MEDS: HYDROmorphone 2 MG/1 ML VIAL IV PRN ×13 (00:07→23:44)
[2018-05-06] MEDS: DEXTROSE 5% LACTATED RINGERS 1,000 ML IV SCH ×2 (01:49→10:35)
[2018-05-06] MEDS: CITALOPRAM 20 MG TABLET PO SCH (11:09)
[2018-05-06] MEDS: MULTIVITAMIN (PRENATAL) TABLET PO SCH (11:09)
[2018-05-06] MEDS: PANTOPRAZOLE 40 MG TABLET PO SCH (11:10)
[2018-05-06] MEDS: buPROPion 75 MG TABLET PO SCH ×2 (11:10→21:30)
[2018-05-06] MEDS ORDERED: BACITRACIN OINT 0.9 GM PACK TOP ONE (11:47)
[2018-05-06] MEDS ORDERED: FAMOTIDINE 20 MG/2 ML VIAL IV ONE (12:12)
[2018-05-06] MEDS ORDERED: TRANEXAMIC ACID 1,000 MG/10 ML VIAL ONE (14:05)
[2018-05-06] MEDS ORDERED: SEVOFLURANE 1 UNIT/15 MINUTE INH ONE (14:33)
[2018-05-06] MEDS ORDERED: PROPOFOL 200 MG/20 ML VIAL IV ONE (14:33)
[2018-05-06] MEDS ORDERED: fentaNYL 100 MCG/2 ML VIAL ONE (14:33)
[2018-05-06] MEDS ORDERED: MIDAZOLAM 2 MG/2 ML VIAL ONE ×2 (14:34)
[2018-05-06] MEDS ORDERED: PHENYLEPHRINE 1 MG/10 ML SYRINGE IV ONE (14:34)
[2018-05-06] MEDS ORDERED: ONDANSETRON 4 MG/2 ML VIAL ONE ×2 (14:34→15:03)
[2018-05-06] MEDS ORDERED: ONDANSETRON 4 MG/2 ML VIAL IV PRN (15:03)
[2018-05-06] MEDS ORDERED: HYDROmorphone 2 MG/1 ML VIAL ONE (15:03)
[2018-05-06] MEDS ORDERED: MEPERIDINE 25 MG/1 ML VIAL ONE ×2 (15:14→15:45)
[2018-05-06] MEDS: MEPERIDINE 25 MG/1 ML VIAL IV PRN ×2 (15:28→15:55)
[2018-05-06] MEDS: FONDAPARINUX 2.5 MG/0.5 ML SYRINGE SUBCUT SCH (17:26)
[2018-05-06] MEDS: KETOROLAC 30 MG/1 ML VIAL IV PRN (19:30)
[2018-05-06] MEDS: GENTAMICIN INJ 320 MG in SODIUM CHLORIDE 0.9% 100 ML IV SCH (22:48)
[2018-05-07] MEDS: HYDROmorphone 2 MG/1 ML VIAL IV PRN ×11 (01:46→23:22)
[2018-05-07] MEDS: ceFAZolin 2,000 MG in PREMIX 1 EACH IV SCH ×2 (01:55→08:34)
[2018-05-07] MEDS: DEXTROSE 5% LACTATED RINGERS 1,000 ML IV SCH ×4 (02:41→21:26)
[2018-05-07] MEDS: KETOROLAC 30 MG/1 ML VIAL IV PRN (05:13)
[2018-05-07 07:25] LABS: Basophils % 0.1 % (0.0-0.8); Eosinophils % 0.1 % (0.00-10.9); Hematocrit 24.5 VOL% (35.7-47.0); Hemoglobin 7.5 GM/DL (12.0-16.0); Immature Granulocytes % 0.9 %; Immature Granulocytes Absolute 0.11 #; Lymphocytes # 1.8 10*3/uL (1.4-4.0); Lymphocytes % 14.9 % (21.3-54.2); Mean Corpuscular HGB Conc 30.6 GM/DL (32-36); Mean Corpuscular Hemoglobin 27 PG (27-34); Mean Corpuscular Volume 88.8 FL (87-102); Mean Platelet Volume 8.9 FL (9.6-12.0); Monocytes # 0.9 10*3/uL (0.11-0.8); Monocytes % 7.8 % (1.7-12.7); Neutrophils # 9.1 10*3/uL (1.4-7.4); Neutrophils % 76.2 % (38.7-73.9); Platelet Count 546 T/CUMM (130-400); Red Blood Count 2.76 MC/CUMM (3.8-5.5); Red Cell Distribution Width 12.8 % (9.3-17.3)
[2018-05-07 07:50] LABS: Calcium 8.4 MG/DL (8.5-10.1); Osmolality,Calculated 273.8 MOS/KG (273-304); Potassium 4.1 MMOL/L (3.5-5.1)
[2018-05-07] MEDS: CITALOPRAM 20 MG TABLET PO SCH (08:33)
[2018-05-07] MEDS: MULTIVITAMIN (PRENATAL) TABLET PO SCH (08:34)
[2018-05-07] MEDS: buPROPion 75 MG TABLET PO SCH ×2 (08:34→20:15)
[2018-05-07] MEDS: PANTOPRAZOLE 40 MG TABLET PO SCH (08:34)
[2018-05-07] MEDS: FONDAPARINUX 2.5 MG/0.5 ML SYRINGE SUBCUT SCH (15:23)
[2018-05-07] MEDS: GABAPENTIN 100 MG CAPSULE PO SCH ×2 (16:13→20:15)
[2018-05-08] MEDS: HYDROmorphone 2 MG/1 ML VIAL IV PRN ×5 (01:27→13:24)
[2018-05-08] MEDS: DEXTROSE 5% LACTATED RINGERS 1,000 ML IV SCH ×2 (05:30→09:51)
[2018-05-08] MEDS: CITALOPRAM 20 MG TABLET PO SCH (08:47)
[2018-05-08] MEDS: MULTIVITAMIN (PRENATAL) TABLET PO SCH (08:47)
[2018-05-08] MEDS: PANTOPRAZOLE 40 MG TABLET PO SCH (08:47)
[2018-05-08] MEDS: GABAPENTIN 100 MG CAPSULE PO SCH (08:48)
[2018-05-08] MEDS: buPROPion 75 MG TABLET PO SCH ×2 (08:48→20:38)
[2018-05-08] MEDS ORDERED: CELECOXIB 200 MG CAPSULE PO ONE (10:04)
[2018-05-08] MEDS: GABAPENTIN 300 MG CAPSULE PO SCH ×2 (12:32→20:38)
[2018-05-08] MEDS ORDERED: GABAPENTIN 100 MG CAPSULE PO SCH (15:00)
[2018-05-08] MEDS: FONDAPARINUX 2.5 MG/0.5 ML SYRINGE SUBCUT SCH (15:46)
[2018-05-08] MEDS: CELECOXIB 200 MG CAPSULE PO SCH (20:38)
[2018-05-09] MEDS: CELECOXIB 200 MG CAPSULE PO SCH ×2 (08:57→20:43)
[2018-05-09] MEDS: GABAPENTIN 300 MG CAPSULE PO SCH ×2 (08:57→20:43)
[2018-05-09] MEDS: CITALOPRAM 20 MG TABLET PO SCH (08:57)
[2018-05-09] MEDS: PANTOPRAZOLE 40 MG TABLET PO SCH (08:57)
[2018-05-09] MEDS: buPROPion 75 MG TABLET PO SCH ×2 (08:57→20:43)
[2018-05-09] MEDS: MULTIVITAMIN (PRENATAL) TABLET PO SCH (08:57)
[2018-05-09] MEDS: FONDAPARINUX 2.5 MG/0.5 ML SYRINGE SUBCUT SCH (16:04)
[2018-05-09] MEDS: HYDROmorphone 2 MG/1 ML VIAL IV PRN (21:44)
[2018-05-10] MEDS: HYDROmorphone 2 MG/1 ML VIAL IV PRN ×9 (00:59→23:05)
[2018-05-10 06:39] LABS: Basophils % 0.5 % (0.0-0.8); Eosinophils # 0.2 10*3/uL (0.0-0.87); Eosinophils % 2.9 % (0.00-10.9); Hematocrit 27.3 VOL% (35.7-47.0); Hemoglobin 8.2 GM/DL (12.0-16.0); Immature Granulocytes % 0.4 %; Immature Granulocytes Absolute 0.03 #; Lymphocytes # 2.8 10*3/uL (1.4-4.0); Lymphocytes % 37.7 % (21.3-54.2); Mean Corpuscular Hemoglobin 27 PG (27-34); Mean Corpuscular Volume 88.9 FL (87-102); Monocytes # 0.4 10*3/uL (0.11-0.8); Neutrophils # 3.9 10*3/uL (1.4-7.4); Neutrophils % 53.5 % (38.7-73.9); Platelet Count 599 T/CUMM (130-400); Red Blood Count 3.07 MC/CUMM (3.8-5.5); Red Cell Distribution Width 13.1 % (9.3-17.3); White Blood Count 7.3 T/CUMM (4-12)
[2018-05-10 06:52] LABS: Calcium 8.7 MG/DL (8.5-10.1); Osmolality,Calculated 278.8 MOS/KG (273-304); Potassium 3.5 MMOL/L (3.5-5.1)
[2018-05-10] MEDS: ONDANSETRON 4 MG/2 ML VIAL IV PRN (09:00)
[2018-05-10] MEDS: buPROPion 75 MG TABLET PO SCH ×2 (09:06→20:38)
[2018-05-10] MEDS: MULTIVITAMIN (PRENATAL) TABLET PO SCH (09:06)
[2018-05-10] MEDS: PANTOPRAZOLE 40 MG TABLET PO SCH (09:06)
[2018-05-10] MEDS: CELECOXIB 200 MG CAPSULE PO SCH ×2 (09:06→20:37)
[2018-05-10] MEDS: GABAPENTIN 300 MG CAPSULE PO SCH ×2 (09:06→20:38)
[2018-05-10] MEDS: CITALOPRAM 20 MG TABLET PO SCH (09:06)
[2018-05-10] MEDS: FONDAPARINUX 2.5 MG/0.5 ML SYRINGE SUBCUT SCH (15:13)
[2018-05-11] MEDS: HYDROmorphone 2 MG/1 ML VIAL IV PRN ×5 (01:16→14:48)
[2018-05-11] MEDS: ONDANSETRON 4 MG/2 ML VIAL IV PRN (09:02)
[2018-05-11] MEDS: CELECOXIB 200 MG CAPSULE PO SCH ×2 (09:02→21:10)
[2018-05-11] MEDS: MAGNESIUM HYDROXIDE SUSP 30 ML UDCUP PO PRN (09:02)
[2018-05-11] MEDS: diphenhydrAMINE CAP 25 MG CAPSULE PO PRN (09:02)
[2018-05-11] MEDS: CITALOPRAM 20 MG TABLET PO SCH (09:03)
[2018-05-11] MEDS: buPROPion 75 MG TABLET PO SCH ×2 (09:03→21:10)
[2018-05-11] MEDS: PANTOPRAZOLE 40 MG TABLET PO SCH (09:03)
[2018-05-11] MEDS: GABAPENTIN 300 MG CAPSULE PO SCH ×2 (09:03→21:10)
[2018-05-11] MEDS: MULTIVITAMIN (PRENATAL) TABLET PO SCH (09:13)
[2018-05-11] MEDS: FONDAPARINUX 2.5 MG/0.5 ML SYRINGE SUBCUT SCH (15:27)
[2018-05-11] MEDS ORDERED: WITCH HAZEL PADS 100/JAR TOP PRN (18:13)
[2018-05-12 11:44] VITALS: BP 133/87
[2018-05-12] MEDS: CELECOXIB 200 MG CAPSULE PO SCH (11:50)
[2018-05-12] MEDS: GABAPENTIN 300 MG CAPSULE PO SCH (11:50)
[2018-05-12] MEDS: CITALOPRAM 20 MG TABLET PO SCH (11:50)
[2018-05-12] MEDS: PANTOPRAZOLE 40 MG TABLET PO SCH (11:52)
[2018-05-12] MEDS: buPROPion 75 MG TABLET PO SCH (11:52)
[2018-05-12] MEDS: MULTIVITAMIN (PRENATAL) TABLET PO SCH (11:52)
== END 2018-05-12 15:23 | DRG 464 ==
LOC: N.ED 07:24 → N.EDINP 08:09 → N.3E 08:31
PROVIDERS: ADMIT Orthopaedic Surgery; ATTEND Orthopaedic Surgery